=== PATIENT | female | born 1980 | race American Indian/Alaskan Native ===

== ENCOUNTER 2021-06-08 09:43 | Emergency (ER) | payer SELFPAY ==
[2021-06-08 10:32] VITALS: BP 153/85
--- NOTE | 2021-06-08 11:15 | Emergency Department Report ---
ED ENT HPI - General Chief complaint: Sore Throat Stated complaint: EAR ,THROAT PAIN Time Seen by Provider: 06/08/21 10:37 Source: patient Mode of arrival: Ambulatory Limitations: No Limitations - History of Present Illness Initial comments: Patient is a 41-year-old female presents emergency room complaints of a sore throat that began 2 days ago. She states that she also has right ear pain. She denies any ear drainage, hearing changes, fever, nausea, vomiting, diarrhea, cough, shortness of breath, chest pain. She denies any known sick contacts or recent travel. She has not been vaccinated for COVID-19. She has not been tested since becoming sick. No past medical history. No allergies to medications. She is a current every day smoker. - Related Data Previous Rx's Medication Instructions Recorded Last Taken Type Benzocaine/Menthol [Cepacol Sore 1 each MM Q4HR #10 lozenge 06/08/21 Unknown Rx Throat Lozenge] Nystas/Diphen/Xyl Visc/Mylanta 30 ml MM Q4H PRN #300 ml 06/08/21 Unknown Rx [Magic Mouthwash] guaiFENesin ER [Mucinex ER] 600 mg PO Q12H #14 tablet.er 06/08/21 Unknown Rx Allergies Allergy/AdvReac Type Severity Reaction Status Date / Time acetaminophen [From Percocet] Allergy Itching Verified 06/08/21 10:28 Iodine and Iodide Containing Allergy Itching Verified 06/08/21 10:29 Produc oxycodone [From Percocet] Allergy Itching Verified 06/08/21 10:28 Penicillins Allergy Itching Verified 06/08/21 10:28 ED Dental HPI - General Chief complaint: Sore Throat Stated complaint: EAR ,THROAT PAIN Time Seen by Provider: 06/08/21 10:37 Source: patient Mode of arrival: Ambulatory Limitations: No Limitations - Related Data Previous Rx's Medication Instructions Recorded Last Taken Type Benzocaine/Menthol [Cepacol Sore 1 each MM Q4HR #10 lozenge 06/08/21 Unknown Rx Throat Lozenge] Nystas/Diphen/Xyl Visc/Mylanta 30 ml MM Q4H PRN #300 ml 06/08/21 Unknown Rx [Magic Mouthwash] guaiFENesin ER [Mucinex ER] 600 mg PO Q12H #14 tablet.er 06/08/21 Unknown Rx Allergies Allergy/AdvReac Type Severity Reaction Status Date / Time acetaminophen [From Percocet] Allergy Itching Verified 06/08/21 10:28 Iodine and Iodide Containing Allergy Itching Verified 06/08/21 10:29 Produc oxycodone [From Percocet] Allergy Itching Verified 06/08/21 10:28 Penicillins Allergy Itching Verified 06/08/21 10:28 ED Review of Systems ROS: Stated complaint: EAR ,THROAT PAIN Other details as noted in HPI Comment: All other systems reviewed and negative ED Past Medical Hx - Past Medical History Previous Medical History?: No - Surgical History Past Surgical History?: Yes Additional Surgical History: total hip replacement, pelvic - Medications Home Medications: Home Medications Medication Instructions Recorded Confirmed Last Taken Type Benzocaine/Menthol [Cepacol Sore 1 each MM Q4HR #10 lozenge 06/08/21 Unknown Rx Throat Lozenge] Nystas/Diphen/Xyl Visc/Mylanta 30 ml MM Q4H PRN #300 ml 06/08/21 Unknown Rx [Magic Mouthwash] guaiFENesin ER [Mucinex ER] 600 mg PO Q12H #14 tablet.er 06/08/21 Unknown Rx ED Physical Exam - General Limitations: No Limitations General appearance: alert, in no apparent distress - Head Head exam: Present: atraumatic, normocephalic - Eye Eye exam: Present: normal appearance - ENT ENT exam: Present: mucous membranes moist, TM's normal bilaterally, normal external ear exam, other (mild posterior oropharynx erythema, no tonsillar hypertrophy or exudates, uvula is midline, no uvular edema or deviation, no trismus, no tongue elevation ) - Respiratory Respiratory exam: Present: normal lung sounds bilaterally. Absent: respiratory distress, wheezes, rales, rhonchi, stridor, chest wall tenderness, accessory muscle use, decreased breath sounds, prolonged expiratory - Cardiovascular Cardiovascular Exam: Present: regular rate, normal rhythm, normal heart sounds. Absent: systolic murmur, diastolic murmur, rubs, gallop - Neurological Exam Neurological exam: Present: alert, oriented X3 - Psychiatric Psychiatric exam: Present: normal affect, normal mood - Skin Skin exam: Present: warm, dry, intact ED Course Vital Signs 06/08/21 10:24 Temperature 98.9 F Pulse Rate 96 H Respiratory 18 Rate Blood Pressure 153/85 O2 Sat by Pulse 100 Oximetry ED Medical Decision Making - Medical Decision Making Patient is a 41-year-old female presents emergency room complaints of a sore throat that began 2 days ago. She states that she also has right ear pain. She denies any ear drainage, hearing changes, fever, nausea, vomiting, diarrhea, cough, shortness of breath, chest pain. She denies any known sick contacts or recent travel. She has not been vaccinated for COVID-19. She has not been tested since becoming sick. No past medical history. No allergies to medications. She is a current every day smoker. On exam: mild posterior oropharynx erythema, no tonsillar hypertrophy or exudates, uvula is midline, no uvular edema or deviation, no trismus, no tongue elevation, normal TMs and canals bilaterally. Rapid strep is negative. Symptoms likely related to URI. Patient given prescription for symptomatic relief. Advised patient Please use medication as prescribed. Please increase your fluid intake over the next several days. May take Tylenol as needed for fever or body aches. Follow-up with a primary care doctor for reexamination. Return to emergency room immediately for any new or worsening symptoms including but not limited to difficulty breathing, shortness of breath, severe chest pain, unable to tolerate by mouth intake, etc. recommend for you to get outpatient COVID-19 testing and if positive please self quarantine for 10 days from onset of symptoms. Critical care attestation.: If time is entered above; I have spent that time in minutes in the direct care of this critically ill patient, excluding procedure time. ED Disposition Clinical Impression: Upper respiratory infection Qualifiers: URI type: unspecified URI Qualified Code(s): J06.9 - Acute upper respiratory infection, unspecified Disposition: 01 HOME / SELF CARE / HOMELESS Is pt being admited?: No Does the pt Need Aspirin: No Condition: Stable Instructions: Viral Respiratory Infection Additional Instructions: Please use medication as prescribed. Please increase your fluid intake over the next several days. May take Tylenol as needed for fever or body aches. Follow-up with a primary care doctor for reexamination. Return to emergency room immediately for any new or worsening symptoms including but not limited to difficulty breathing, shortness of breath, severe chest pain, unable to tolerate by mouth intake, etc. recommend for you to get outpatient COVID-19 testing and if positive please self quarantine for 10 days from onset of symptoms. Prescriptions: Benzocaine/Menthol [Cepacol Sore Throat Lozenge] 1 each MM Q4HR #10 lozenge Nystas/Diphen/Xyl Visc/Mylanta [Magic Mouthwash] 30 ml MM Q4H PRN #300 ml PRN Reason: sore throat guaiFENesin ER [Mucinex ER] 600 mg PO Q12H #14 tablet.er Referrals: HAZEL VALIENTE MD [Staff Physician] - 3-[address] [facility] [Provider Group] - 3-5 Days Forms: Work/School Release Form(ED) Time of Disposition: 11:13 Print Language: ALBANIAN
== END 2021-06-08 11:38 | disposition home or self-care (01) ==
LOC: ED 09:43
DX: J06.9 Acute upper respiratory infection, unspecified (principal); Z98.890 Other specified postprocedural states; Z88.0 Allergy status to penicillin; Z88.5 Allergy status to narcotic agent; Z91.041 Radiographic dye allergy status
CPT/HCPCS: 87116; 87430; 99283

== ENCOUNTER 2021-08-17 16:58 | Emergency (ER) | payer OTHER ==
[2021-08-17] MEDS ORDERED: SODIUM CHLORIDE 0.9% 1000 ML 1,000 ML IV ONE (18:07)
[2021-08-17] MEDS ORDERED: LORazepam 2 MG/ML VIAL IV ONE (18:07)
[2021-08-17] MEDS ORDERED: ONDANSETRON 4 MG/2 ML INJ IV ONE (18:08)
--- NOTE | 2021-08-17 18:11 | Emergency Department Report ---
ED Alcohol HPI - General Chief Complaint: Alcohol Stated Complaint: Alcohol Withdrawal Time Seen by Provider: 08/17/21 17:55 Source: patient Mode of arrival: Ambulatory Limitations: No Limitations - History of Present Illness Initial Comments: Patient is 41 years old female with history of chronic alcohol abuse. Patient presented to the ER complaining of nausea and tremor since this morning. Patient stated that she started to quit drinking. Patient stated that she is to drink daily and she is asking for detox program. Patient denied any hallucin ation. She also denied any suicidal or homicidal ideation. No seizure. Patient found to be tachycardic with a heart rate of 105 and blood pressure of 198/100. Patient experiencing alcohol withdrawal symptoms. MD Complaint: alcohol withdrawal, desires rehab, medical clearance for det Last Drink: just [employer] Chronic Alcohol Use: Yes Previous Visits for Alcohol Intoxication?: No Recent Trauma: No Associated Symptoms: nausea, tremors Treatments Prior to Arrival: none - Related Data Previous Rx's Medication Instructions Recorded Last Taken Type Benzocaine/Menthol [Cepacol Sore 1 each MM Q4HR #10 lozenge 06/08/21 Unknown Rx Throat Lozenge] Nystas/Diphen/Xyl Visc/Mylanta 30 ml MM Q4H PRN #300 ml 06/08/21 Unknown Rx [Magic Mouthwash] guaiFENesin ER [Mucinex ER] 600 mg PO Q12H #14 tablet.er 06/08/21 Unknown Rx Allergies Allergy/AdvReac Type Severity Reaction Status Date / Time acetaminophen [From Percocet] Allergy Itching Verified 08/17/21 17:04 Iodine and Iodide Containing Allergy Itching Verified 08/17/21 17:04 Produc oxycodone [From Percocet] Allergy Itching Verified 08/17/21 17:04 Penicillins Allergy Itching Verified 08/17/21 17:04 ED Review of Systems ROS: Stated complaint: Alcohol Withdrawal Other details as noted in HPI Comment: All other systems reviewed and negative Constitutional: denies: chills, fever Respiratory: denies: cough, shortness of breath, SOB with exertion Cardiovascular: palpitations. denies: chest pain Gastrointestinal: denies: abdominal pain, nausea, vomiting Musculoskeletal: denies: back pain Neurological: denies: headache, weakness, numbness, paresthesias, confusion, abnormal gait Psychiatric: anxiety. denies: depression, auditory hallucinations, visual hallucinations, homicidal thoughts, suicidal thoughts ED Past Medical Hx - Surgical History Additional Surgical History: total hip replacement, pelvic - Medications Home Medications: Home Medications Medication Instructions Recorded Confirmed Last Taken Type Benzocaine/Menthol [Cepacol Sore 1 each MM Q4HR #10 lozenge 06/08/21 Unknown Rx Throat Lozenge] Nystas/Diphen/Xyl Visc/Mylanta 30 ml MM Q4H PRN #300 ml 06/08/21 Unknown Rx [Magic Mouthwash] guaiFENesin ER [Mucinex ER] 600 mg PO Q12H #14 tablet.er 06/08/21 Unknown Rx ED Physical Exam - General Limitations: No Limitations General appearance: alert, in no apparent distress, anxious - Head Head exam: Present: atraumatic, normocephalic, normal inspection - Eye Eye exam: Present: normal appearance, PERRL - ENT ENT exam: Present: normal exam, normal orophraynx, mucous membranes moist - Neck Neck exam: Present: normal inspection, full ROM. Absent: tenderness, meningismus - Respiratory Respiratory exam: Present: normal lung sounds bilaterally - Cardiovascular Cardiovascular Exam: Present: tachycardia - GI/Abdominal GI/Abdominal exam: Present: soft, normal bowel sounds. Absent: distended, tenderness, guarding, rebound, rigid, organomegaly, mass, hernia - Extremities Exam Extremities exam: Present: normal inspection, full ROM, normal capillary refill. Absent: tenderness - Back Exam Back exam: Present: normal inspection, full ROM. Absent: CVA tenderness (R), CVA tenderness (L) - Neurological Exam Neurological exam: Present: alert, oriented X3, CN II-XII intact, normal gait, reflexes normal - Psychiatric Psychiatric exam: Present: normal mood, anxious. Absent: homicidal ideation, suicidal ideation - Skin Skin exam: Present: warm, intact, normal color ED Course Vital Signs 08/17/21 16:59 Temperature 98.3 F Pulse Rate 105 H Respiratory 16 Rate Blood Pressure 198/85 [Left] O2 Sat by Pulse 100 Oximetry ED Medical Decision Making - Lab Data Result diagrams: 08/17/21 18:23 08/17/21 18:23 - Medical Decision Making Patient is 41 years old female with history of chronic alcohol abuse. Patient presented to the ER complaining of nausea and tremor since this morning. Patient stated that she started to quit drinking. Patient stated that she is to drink daily and she is asking for detox program. Patient denied any hallucinat ion. She also denied any suicidal or homicidal ideation. No seizure. Patient found to be tachycardic with a heart rate of 105 and blood pressure of 198/100. Patient experiencing alcohol withdrawal symptoms. Patient received Ativan and normal saline. Patient stated that she is feeling much better. Labs reviewed and is unremarkable except for mild trace ketones in the urine. Patient is medically cleared to follow-up with a detox program. Critical care attestation.: If time is entered above; I have spent that time in minutes in the direct care of this critically ill patient, excluding procedure time. ED Disposition Clinical Impression: Alcohol withdrawal, Acute nausea with nonbilious vomiting Disposition: 01 HOME / SELF CARE / HOMELESS Is pt being admited?: No Condition: Stable Instructions: Nausea and Vomiting, Adult, Alcohol Withdrawal Syndrome, [id number] Referrals: PRIMARY CARE, [Primary Care Provider] - 3-5 Days
[2021-08-17 19:02] LABS: Basophils % (Auto) 0.5 % (0.0-1.8); Eosinophils % (Auto) 0.4 % (0.0-4.3); Hematocrit 39.7 % (30.3-42.9); Hemoglobin 12.9 gm/dl (10.1-14.3); Lymphocytes # (Auto) 1.8 K/mm3 (1.2-5.4); Lymphocytes % (Auto) 21.5 % (13.4-35.0); Mean Corpuscular HGB Conc 32 % (30-34); Mean Corpuscular Volume 100 fl (79-97); Monocytes # (Auto) 0.7 K/mm3 (0.0-0.8); Monocytes % (Auto) 8.4 % (0.0-7.3); Platelet Count 285 K/mm3 (140-440); Red Blood Count 3.97 M/mm3 (3.65-5.03); Red Cell Distribution Width 13.7 % (13.2-15.2)
[2021-08-17 19:11] LABS: INR 0.9 (0.87-1.13)
[2021-08-17 19:12] LABS: Partial Thromboplastin Time 25.8 Sec. (24.2-36.6)
[2021-08-17 19:13] LABS: Blood Urea Nitrogen 9 mg/dL (7-17); Calcium 9.6 mg/dL (8.4-10.2); Hemolysis Index 7
[2021-08-17 19:14] LABS: BUN/Creatinine Ratio 18
[2021-08-17 19:17] LABS: Alanine Aminotransferase 105 units/L (7-56); Albumin 4.9 g/dL (3.9-5)
[2021-08-17 19:18] LABS: Bilirubin,Direct < 0.2 mg/dL (0-0.2)
[2021-08-17 20:45] LABS: Amphetamine Screen,Urine Negative; Benzodiazepines Screen,Urine Negative; Cocaine Screen,Urine Negative; Methadone Screen,Urine Negative; Opiate Screen,Urine Negative
[2021-08-17 20:50] LABS: Bilirubin,Urine NEG (Negative); Blood,Urine SM (Negative); Color,Urine Amber (Yellow); Mucus,Urine 3+ /HPF
[2021-08-17 21:03] LABS: Cannabinoid Screen,Urine Positive
[2021-08-17 21:36] VITALS: BP 144/82
== END 2021-08-17 21:19 | disposition home or self-care (01) ==
LOC: ED 16:58
DX: F10.239 Alcohol dependence with withdrawal, unspecified (principal); R11.2 Nausea with vomiting, unspecified; Z88.1 Allergy status to other antibiotic agents; Z88.8 Allergy status to other drugs, medicaments and biological substances; Z79.899 Other long term (current) drug therapy; Z98.890 Other specified postprocedural states
CPT/HCPCS: 36415; 80048; 80076; 80307; 81001; 83690; 83735; 85025; 85610; 85730; 96361; 96374; 96375; 99283; J2060; J2405; J7030; 80320; Q0162; G0480

== ENCOUNTER → 2021-10-12 | Emergency (ER) | payer OTHER ==
[2021-10-12 22:32] VITALS: BP 157/90
== END ==
LOC: ED 22:27
DX: R11.10 Vomiting, unspecified (principal); Z53.21 Procedure and treatment not carried out due to patient leaving prior to being seen by health care provider

== ENCOUNTER 2021-10-29 10:12 | Emergency (ER) | payer OTHER ==
[2021-10-29] MEDS ORDERED: IBUPROFEN 800 MG TAB PO ONE (10:50)
[2021-10-29] MEDS ORDERED: dexAMETHasone 4 MG/ML VIAL IM ONE (10:50)
--- NOTE | 2021-10-29 10:53 | Emergency Department Report ---
Minor Respiratory - HPI Chief Complaint: Earache Stated Complaint: HEAD/EAR/THROAT/PAIN Time Seen by Provider: 10/29/21 10:44 Duration: 3 Days Pain Location: Facial, Throat, Nose, Ear Severity: mild Minor Respiratory: Yes Sore Throat, Yes Able to Tolerate Fluids, Yes Ear Pain, No Rhinorrhea, No Cough, No Sick Contacts, No Hemoptysis, No Chest Pain, No Shortness of Breath, No Fever Other History: Patient is a 41-year-old female that comes to the emergency room complaining of a sore throat, swollen lymph nodes, and right ear pain. Patient had Covid prior. She has no cough other than her usual smoker's cough. It is nonproductive. She has no fever or chills. No chest pain or shortness of breath. She is ambulatory [id number] and nontoxic on exam in triage. Patient has not seen her primary care provider before coming to the ER. She has taken nothing for the discomfort prior to ER visit. ED Review of Systems ROS: Stated complaint: HEAD/EAR/THROAT/PAIN Other details as noted in HPI Comment: All other systems reviewed and negative ED Past Medical Hx - Past Medical History Previous Medical History?: No - Surgical History Past Surgical History?: Yes Additional Surgical History: total hip replacement, pelvic - Family History Family history: no significant - Social History Smoking Status: Current Every Day Smoker Substance Use Type: None - Medications Home Medications: Home Medications Medication Instructions Recorded Confirmed Last Taken Type Azithromycin [Zithromax Z-DESIREE] 250 mg PO DAILY #6 tablet 10/29/21 Unknown Rx predniSONE [Deltasone] 20 mg PO DAILY #5 tablet 10/29/21 Unknown Rx Minor Respiratory Exam - Exam General: Vital signs noted. No distress. Alert and acting appropriately. HEENT: Yes Pharyngeal Erythema, Yes Moist Mucous Membranes, No Pharyngeal Exudates, No Rhinorrhea, No Conjuctival Injection, No Frontal Tenderness, No Maxillary Tenderness Ear: Right TM Erythema, Neither TM Bulge, Neither EAC Pain, Neither EAC Discharge Neck: Yes Adenopathy, Yes Supple Lungs: Yes Good Air Exchange, No Wheezes, No Ronchi, No Stridor, No Cough, No Labored Respirations, No Retractions, No Use of Accessory Muscles, No Other Abnormal Lung Sounds Heart: Yes Regular, No Murmur Abdomen: Yes Normal Bowel Sounds, No Tenderness, No Peritoneal Signs Skin: No Rash, No Edema Neurologic: Alert and oriented, no deficits. Musculoskeletal: Unremarkable. ED Course Vital Signs 10/29/21 10:27 Temperature 99.1 F Pulse Rate 111 H Respiratory 16 Rate Blood Pressure 160/100 [Left] O2 Sat by Pulse 99 Oximetry ED Medical Decision Making - Medical Decision Making Vital Signs 10/29/21 10/29/21 10:27 11:15 Temperature 99.1 F Pulse Rate 111 H 106 H Respiratory 16 Rate Blood Pressure 160/100 152/90 [Left] O2 Sat by Pulse 99 Oximetry medicated in ER dc home with dc plan of care including diet, meds, follow up, hydration. She verbalizes understanding of plan of care. She has been advised to stop smoking and to monitor her bp which was slightly inc on admit to ER. She verbalizes understanding of plan of care Critical care attestation.: If time is entered above; I have spent that time in minutes in the direct care of this critically ill patient, excluding procedure time. ED Disposition Clinical Impression: URI, acute, Elevated blood pressure reading Otitis media Qualifiers: Otitis media type: serous Chronicity: acute Laterality: right Disposition: 01 HOME / SELF CARE / HOMELESS Is pt being admited?: No Does the pt Need Aspirin: No Condition: Stable Instructions: Otitis Media, Adult, [id number] Additional Instructions: MEDS ORDERED TODAY MOTRIN OR TYLENOL FOR PAIN FOLLOW UP WITH PCP NEXT WEEK TO BE SURE YOU ARE GETTING BETTER REFERRAL BELOW STAY WELL HYDRATED WITH WATER MONITOR YOUR BLOOD PRESSURE IT WAS INCREASED TODAY FOLLOW WITH PCP IF IT REMAINS HIGH AVOID CIG. SMOKING Prescriptions: predniSONE [Deltasone] 20 mg PO DAILY #5 tablet Azithromycin [Zithromax Z-DESIREE] 250 mg PO DAILY #6 tablet Referrals: PRIMARY MD HAZEL [Primary Care Provider] - 3-5 Days HAZEL VALIENTE MD [Staff Physician] - 3-5 Days Forms: Work/School Release Form(ED) Time of Disposition: 10:49
[2021-10-29 11:17] VITALS: BP 152/90
== END 2021-10-29 11:14 | disposition home or self-care (01) ==
LOC: ED 10:12
DX: J06.9 Acute upper respiratory infection, unspecified (principal); R03.0 Elevated blood-pressure reading, without diagnosis of hypertension; H66.91 Otitis media, unspecified, right ear; Z96.649 Presence of unspecified artificial hip joint; F17.200 Nicotine dependence, unspecified, uncomplicated; Z88.6 Allergy status to analgesic agent; Z91.018 Allergy to other foods
CPT/HCPCS: 96372; 99282; J1100

== ENCOUNTER 2022-03-13 13:30 | Emergency (ER) | payer OTHER ==
--- NOTE | 2022-03-13 15:40 | XRay Report ---
Left ankle 3 views INDICATION: Injury FINDINGS: Alignment appears normal. Talar dome appears normal. Mild soft tissue swelling throughout t he ankle. No acute fracture. Signer Name: Mikael Wong MD Signed: 03/13/2022 3:36 PM Workstation Name: [id number]
--- NOTE | 2022-03-13 16:46 | Emergency Department Report ---
ED General Adult HPI - General Chief complaint: Fall Stated complaint: LEFT ANKLE INJURY Time Seen by Provider: 03/13/22 16:17 Source: patient Mode of arrival: Wheelchair Limitations: No Limitations - History of Present Illness Initial comments: 41-year-old -[place]iss female patient presents with complaints of left ankle pain after falling yesterday. She states she twisted her ankle and rates her pain as 8/10 in severity. Ibuprofen and Tylenol not helping. She denies any numbness/tingling or weakness in the ankle. Pain worsens with movement and with palpation and weightbearing. -: Sudden Severity scale (0 -10): 8 - Related Data Previous Rx's Medication Instructions Recorded Last Taken Type Azithromycin [Zithromax Z-DESIREE] 250 mg PO DAILY #6 tablet 10/29/21 Unknown Rx predniSONE [Deltasone] 20 mg PO DAILY #5 tablet 10/29/21 Unknown Rx Naproxen 500 mg PO BID PRN #30 tab 03/13/22 Unknown Rx traMADoL [Ultram 50 MG tab] 50 mg PO Q6HR PRN #10 tablet 03/13/22 Unknown Rx Allergies Allergy/AdvReac Type Severity Reaction Status Date / Time acetaminophen [From Percocet] Allergy Itching Verified 08/17/21 17:04 Iodine and Iodide Containing Allergy Itching Verified 08/17/21 17:04 Produc oxycodone [From Percocet] Allergy Itching Verified 08/17/21 17:04 Penicillins Allergy Itching Verified 08/17/21 17:04 ED Review of Systems ROS: Stated complaint: LEFT ANKLE INJURY Other details as noted in HPI Constitutional: denies: chills, fever Musculoskeletal: joint swelling, arthralgia Skin: denies: change in color Neurological: abnormal gait. denies: numbness, paresthesias ED Past Medical Hx - Past Medical History Previous Medical History?: Yes Additional medical history: Hx atrial fib - Surgical History Past Surgical History?: Yes Additional Surgical History: total hip replacement, pelvic - Social History Smoking Status: Current Every Day Smoker Substance Use Type: None - Medications Home Medications: Home Medications Medication Instructions Recorded Confirmed Last Taken Type Azithromycin [Zithromax Z-DESIREE] 250 mg PO DAILY #6 tablet 10/29/21 Unknown Rx predniSONE [Deltasone] 20 mg PO DAILY #5 tablet 10/29/21 Unknown Rx Naproxen 500 mg PO BID PRN #30 tab 03/13/22 Unknown Rx traMADoL [Ultram 50 MG tab] 50 mg PO Q6HR PRN #10 tablet 03/13/22 Unknown Rx ED Physical Exam - General Limitations: No Limitations General appearance: alert, in no apparent distress - Head Head exam: Present: atraumatic, normocephalic - Eye Eye exam: Present: normal appearance - Respiratory Respiratory exam: Absent: respiratory distress - Cardiovascular Cardiovascular Exam: Present: regular rate - Extremities Exam Extremities exam: Present: other (Concentric tenderness to palpation noted to the left ankle without lateral or medial malleolus tenderness to palpation noted; normal pedal pulse noted with normal sensation; range of motion is limited by pain) - Neurological Exam Neurological exam: Present: alert. Absent: normal gait (Antalgic) - Psychiatric Psychiatric exam: Present: normal affect, normal mood - Skin Skin exam: Present: warm, dry, intact, normal color. Absent: rash ED Course Vital Signs 03/13/22 15:14 Temperature 98.8 F Pulse Rate 129 H Respiratory 20 Rate Blood Pressure 140/84 [Right] O2 Sat by Pulse 97 Oximetry ED Medical Decision Making - Radiology Data Radiology results: report reviewed - Medical Decision Making 41-year-old -Swiss female patient presents with complaints of left ankle pain after falling yesterday. She states she twisted her ankle and rates her pain as 8/10 in severity. Ibuprofen and Tylenol not helping. She denies any numbness/tingling or weakness in the ankle. Pain worsens with movement and with palpation and weightbearing. X-ray of the ankle is negative for any acute bony abnormality. Discussed treatment for ankle sprain with rice method, crutches, and NSAIDs. Recommend follow-up with orthopedics as needed. Strict return precautions were discussed in detail patient verbalizes understanding Critical care attestation.: If time is entered above; I have spent that time in minutes in the direct care of this critically ill patient, excluding procedure time. ED Disposition Clinical Impression: Left ankle injury Disposition: HOME / SELF CARE / HOMELESS Is pt being admited?: No Condition: Stable Instructions: Ankle Sprain Prescriptions: Naproxen 500 mg PO BID PRN #30 tab PRN Reason: pain traMADoL [Ultram 50 MG tab] 50 mg PO Q6HR PRN #10 tablet PRN Reason: Pain , Severe (7-10) Referrals: [facility] [Provider Group] - 3-5 Days Forms: Work/School Release Form(ED)
[2022-03-13 17:26] VITALS: BP 130/80
== END 2022-03-13 17:31 | disposition home or self-care (01) ==
LOC: ED 13:30
DX: S99.912A Unspecified injury of left ankle, initial encounter (principal); X58.XXXA Exposure to other specified factors, initial encounter; Y93.89 Activity, other specified; Y92.89 Other specified places as the place of occurrence of the external cause; Y99.8 Other external cause status
CPT/HCPCS: 99283; 99284